=== PATIENT | female | born 1995 | race Caucasian/White ===

== ENCOUNTER 2017-11-04 16:10 | Emergency (ER) | payer OTHER ==
[~2017-11-04] VITALS: Ht 162.6 cm; Wt 51.3 kg
[2017-11-04] MEDS ORDERED: NS(*) 0.9% 1000 ML BAG 1,000 ML IV ONE ×2 (16:23→18:10)
[2017-11-04] MEDS ORDERED: ONDANSETRON 4 MG/2 ML VIAL IVP ONE (16:25)
--- NOTE | 2017-11-04 16:28 | ER Report ---
History and Physical Time Seen By MD: 16:15 Hx. of Stated Complaint: N/V/D SINCE 0700 HPI/ROS CHIEF COMPLAINT: Nausea, vomiting, diarrhea, abdominal pain HISTORY OF PRESENT ILLNESS: Patient is a 22-year-old female who presents to ED with complaint of nausea, vomiting, diarrhea, abdominal pain that started this morning at about 7 AM. She states that she initially had 2 or 3 episodes of diarrhea and then has had about 10-12 episodes of emesis today. She states that she has been feeling dehydrated and decided to go to urgent care. She states that she was told at urgent care that they were too busy to see her at this time. She decided to come to the emergency room for evaluation. She states that she has been having some intermittent abdominal pain but this resolves with vomiting. She has not noted any black or bloody bowel movements. She has not noted any blood in her emesis. She denies any fever. She is uncertain of any ill contacts at this time. She denies any cough or shortness of breath. She has not noted any chest pain. She states that she is currently on antibiotics for a urinary tract infection and possible uterine infection by her PAVING AND SURFACING LABOURER. She is uncertain of what the antibiotics are. She states that she was unable to take her antibiotics today due to her vomiting. She denies any back pain. She denies any dysuria or increased urinary frequency. REVIEW OF SYSTEMS: Constitutional: No fever, no chills. Eyes: No discharge. ENT: No sore throat. Cardiovascular: No chest pain, no palpitations. Respiratory: No cough, no shortness of breath. Gastrointestinal: See history of present illness. Genitourinary: See history of present illness. Musculoskeletal: No back pain. Skin: No rashes. Neurological: No headache. Allergies: Coded Allergies: codeine (Verified Allergy, Unknown, 11/04/17) Home Meds Reported Medications Ciprofloxacin Hcl (CIPROFLOXACIN HCL) 500 Mg Tablet, 500 MG PO Q12H, #14 TAB 11/04/17 Doxycycline Hyclate (DOXYCYCLINE HYCLATE) 100 Mg Tablet.dr, 100 MG PO BID 11/04/17 Reviewed Nurses Notes: Yes Old Medical Records Reviewed: Yes Constitutional Vital Sign - Last 24 Hours 11/04/17 11/04/17 11/04/17 11/04/17 16:15 16:15 16:30 16:40 Temp 97.9 Pulse 84 87 Resp 16 B/P (MAP) 128/77 128/77 (94) 114/83 (93) Pulse Ox 96 96 O2 Delivery Room Air 11/04/17 11/04/17 11/04/17 11/04/17 17:00 17:10 17:30 17:40 Pulse 92 85 B/P (MAP) 107/64 (78) 119/79 (92) Pulse Ox 100 96 11/04/17 18:00 B/P (MAP) 109/74 (86) Intake and Output 11/04/17 11/04/17 11/05/17 15:00 23:00 07:00 Intake Total 2000 ml Balance 2000 ml Physical Exam General Appearance: The patient is alert, has no immediate need for airway protection and no signs of toxicity. She appears to be no acute distress. Eyes: Pupils equal and round no pallor or injection. ENT, Mouth: Mucous membranes are moist. Respiratory: There are no retractions, lungs are clear to auscultation. Cardiovascular: Regular rate and rhythm. Gastrointestinal: There is mild epigastric and suprapubic tenderness with palpation. Normal bowel sounds in all 4 quadrants. No rebound or guarding is present. No CVA tenderness bilaterally. Skin: Warm and dry, no rashes. Musculoskeletal: Neck is supple non tender. Extremities are nontender, nonswollen and have full range of motion. DIFFERENTIAL DIAGNOSIS: After history and physical exam differential diagnosis was considered for abdominal pain including but not limited to appendicitis, cholecystitis, gastritis and urinary tract infection. Medical Decision Making Data Points Result Diagram: 11/04/17 1623 11/04/17 1623 Laboratory Hematology Test 11/04/17 16:12 11/04/17 16:23 11/04/17 17:32 Urine Color Yellow Urine Clarity Slightly-cloudy Urine pH 6.0 pH (4.8-9.5) Urine Specific [place] 1.009 Urine Protein Negative mg/dL (NEGATIVE) Urine Glucose (UA) Negative mg/dL (NEGATIVE) Urine Ketones Negative mg/dL (NEGATIVE) Urine Blood Small (NEGATIVE) Urine Nitrite Negative (NEGATIVE) Urine Bilirubin Negative (NEGATIVE) Urine Urobilinogen Negative mg/dL (0.2-1.9) Urine Leukocyte Esterase Moderate (NEGATIVE) Urine RBC 4 /HPF (0-2/HPF) Urine WBC 2 /HPF (0-5/HPF) Urine Squamous Epithelial Cells Many /LPF (</=FEW) Urine Bacteria Negative /HPF (NONE-FEW) Urine Mucus None /HPF (NONE-FEW) Urine HCG, Qualitative Negative (NEGATIVE) Red Blood Count 5.25 M/uL (4.17-5.56) Mean Corpuscular Volume 86.6 fL (80.0-96.0) Mean Corpuscular Hemoglobin 29.3 pg (26.0-33.0) Mean Corpuscular Hemoglobin Concent 33.9 g/dL (32.0-36.0) Red Cell Distribution Width 12.5 % (11.5-14.5) Mean Platelet Volume 7.7 fL (7.2-11.1) Neutrophils (%) (Auto) 91.5 % (39.4-72.5) Lymphocytes (%) (Auto) 3.8 % (17.6-49.6) Monocytes (%) (Auto) 3.7 % (4.1-12.4) Eosinophils (%) (Auto) 0.0 % (0.4-6.7) Basophils (%) (Auto) 1.0 % (0.3-1.4) Nucleated RBC Relative Count (auto) 0.1 /100WBC Neutrophils # (Auto) 13.3 K/uL (2.0-7.4) Lymphocytes # (Auto) 0.6 K/uL (1.3-3.6) Monocytes # (Auto) 0.5 K/uL (0.3-1.0) Eosinophils # (Auto) 0.0 K/uL (0.0-0.5) Basophils # (Auto) 0.1 K/uL (0.0-0.1) Nucleated RBC Absolute Count (auto) 0.01 K/uL Peripheral Blood Smear Yes Y/N Sodium Level 139 mmol/L (137-145) Potassium Level 4.5 mmol/L (3.5-5.0) Chloride Level 103 mmol/L (98-107) Carbon Dioxide Level 22 mmol/L (22-31) Blood Urea Nitrogen 25 mg/dl (7-18) Creatinine 1.90 mg/dl (0.52-1.04) Glomerular Filtration Rate Calc 33.4 Random Glucose 114 mg/dl (75-110) Calcium Level 9.8 mg/dl (8.4-10.2) Total Bilirubin 0.7 mg/dl (0.2-1.3) Aspartate Amino Transf (AST/SGOT) 39 U/L (0-35) Alanine Aminotransferase (ALT/SGPT) 33 U/L (0-56) Alkaline Phosphatase 94 U/L (0-126) Total Protein 7.6 gm/dl (6.3-8.2) Albumin 4.6 g/dl (3.5-5.0) Lipase 83 U/L (23-300) Chemistry Test 11/04/17 16:12 11/04/17 16:23 11/04/17 17:32 Urine Color Yellow Urine Clarity Slightly-cloudy Urine pH 6.0 pH (4.8-9.5) Urine Specific [place] 1.009 Urine Protein Negative mg/dL (NEGATIVE) Urine Glucose (UA) Negative mg/dL (NEGATIVE) Urine Ketones Negative mg/dL (NEGATIVE) Urine Blood Small (NEGATIVE) Urine Nitrite Negative (NEGATIVE) Urine Bilirubin Negative (NEGATIVE) Urine Urobilinogen Negative mg/dL (0.2-1.9) Urine Leukocyte Esterase Moderate (NEGATIVE) Urine RBC 4 /HPF (0-2/HPF) Urine WBC 2 /HPF (0-5/HPF) Urine Squamous Epithelial Cells Many /LPF (</=FEW) Urine Bacteria Negative /HPF (NONE-FEW) Urine Mucus None /HPF (NONE-FEW) Urine HCG, Qualitative Negative (NEGATIVE) White Blood Count 14.5 k/uL (4.5-11.0) Red Blood Count 5.25 M/uL (4.17-5.56) Hemoglobin 15.4 g/dL (12.0-16.0) Hematocrit 45.4 % (34.0-47.0) Mean Corpuscular Volume 86.6 fL (80.0-96.0) Mean Corpuscular Hemoglobin 29.3 pg (26.0-33.0) Mean Corpuscular Hemoglobin Concent 33.9 g/dL (32.0-36.0) Red Cell Distribution Width 12.5 % (11.5-14.5) Platelet Count 359 K/uL (150-450) Mean Platelet Volume 7.7 fL (7.2-11.1) Neutrophils (%) (Auto) 91.5 % (39.4-72.5) Lymphocytes (%) (Auto) 3.8 % (17.6-49.6) Monocytes (%) (Auto) 3.7 % (4.1-12.4) Eosinophils (%) (Auto) 0.0 % (0.4-6.7) Basophils (%) (Auto) 1.0 % (0.3-1.4) Nucleated RBC Relative Count (auto) 0.1 /100WBC Neutrophils # (Auto) 13.3 K/uL (2.0-7.4) Lymphocytes # (Auto) 0.6 K/uL (1.3-3.6) Monocytes # (Auto) 0.5 K/uL (0.3-1.0) Eosinophils # (Auto) 0.0 K/uL (0.0-0.5) Basophils # (Auto) 0.1 K/uL (0.0-0.1) Nucleated RBC Absolute Count (auto) 0.01 K/uL Peripheral Blood Smear Yes Y/N Glomerular Filtration Rate Calc 33.4 Calcium Level 9.8 mg/dl (8.4-10.2) Total Bilirubin 0.7 mg/dl (0.2-1.3) Aspartate Amino Transf (AST/SGOT) 39 U/L (0-35) Alanine Aminotransferase (ALT/SGPT) 33 U/L (0-56) Alkaline Phosphatase 94 U/L (0-126) Total Protein 7.6 gm/dl (6.3-8.2) Albumin 4.6 g/dl (3.5-5.0) Lipase 83 U/L (23-300) Urinalysis Test 11/04/17 16:12 Urine Color Yellow Urine Clarity Slightly-cloudy Urine pH 6.0 pH (4.8-9.5) Urine Specific [place] 1.009 Urine Protein Negative mg/dL (NEGATIVE) Urine Glucose (UA) Negative mg/dL (NEGATIVE) Urine Ketones Negative mg/dL (NEGATIVE) Urine Blood Small (NEGATIVE) Urine Nitrite Negative (NEGATIVE) Urine Bilirubin Negative (NEGATIVE) Urine Urobilinogen Negative mg/dL (0.2-1.9) Urine Leukocyte Esterase Moderate (NEGATIVE) Urine RBC 4 /HPF (0-2/HPF) Urine WBC 2 /HPF (0-5/HPF) Urine Squamous Epithelial Cells Many /LPF (</=FEW) Urine Bacteria Negative /HPF (NONE-FEW) Urine Mucus None /HPF (NONE-FEW) Urine HCG, Qualitative Negative (NEGATIVE) Microbiology Microbiology Date/Time Source Procedure Growth Status 11/04/17 17:32 Vaginal Wet Prep - Final Complete ED Course/Re-evaluation Clinical Indication for ER IV: Hydration ED Course Patient will be given 1 L normal saline bolus with 4 mg IV Zofran. Will obtain labs from patient. 11/04/2017 6:41:27 pm - much improved. Discussed all labs with patient. She does have some leukocytosis at 14.5 thousand as well as elevated creatinine and BUN of 1.9 and 25 respectively. Did have the patient's friends got to her apartment and grab her antibiotics with her consent. She appears to have been on doxycycline and Cipro with a 2 week supply and still has 2 days left. She states that she was having a lot more pain at that point with her pelvic exam. She states she was having cramping which has resolved. Given her history we did complete a pelvic exam here. Pelvic exam: The vulva was normal no lesions. The vagina had small amount of white discharge The cervix was closed no bleeding and no purulent drainage. The uterus was normal size and non tender. The adnexa had no masses and no tenderness. The exam was performed with a sales activity manager. Discussed patient with Dr. Ambrosio, ED advised that discussed patient with Dr. Ramirez, hospitalist. Discussed patient with Dr. Ramirez, hospitalist who advised Dr. Mederos about possibly needing IUD removal given a possible PID previously. He advised the patient likely could be discharged home after fluid resuscitation here. Discussed patient with Dr. Mederos, gynecology, who discussed that given her normal pelvic exam she likely does not have any remnant of PID and unlikely would need IUD removal at this time. He advised to have patient finish her current antibiotics now. With patient's consent, discussed patient's condition with her mother, Dr. Torres, who is a general surgeon in [place], [place]. Discussed all of her labs and conversations with the other physicians about her daughter. Discussed that most likely pitchers that she is having some gastroenteritis and will send her home with Zofran as long as she is able to tolerate fluids well she should be able to rehydrate herself. Would like her to have close follow-up for gynecology and primary care provider and have her creatinine rechecked. She should finish her antibiotics that she currently has. Decision to Disposition Date: Nov 04, 2017 Decision to Disposition Time: 18:46 Depart Departure Latest Vital Signs Vital Signs Date Time Temp Pulse Resp B/P (MAP) Pulse Ox O2 Delivery O2 Flow Rate FiO2 11/04/17 18:00 109/74 (86) 11/04/17 17:40 85 96 11/04/17 16:15 97.9 16 Room Air Impression: Primary Impression: Nausea vomiting and diarrhea Additional Impressions: Abdominal pain Acute kidney injury Bacterial vaginosis Condition: Improved Disposition: HOME OR SELF-CARE Referrals: ELIGIO MEDEROS MD, MARIE C DO New Scripts Metronidazole (METRONIDAZOLE) 500 Mg Tablet 500 MG PO BID for 7 Days, #14 TAB Prov: QUINN TAVARES PA-C 11/04/17 Ondansetron (ZOFRAN ODT) 4 Mg Tab.rapdis 4 MG PO Q6H Y for NAUSEA/VOMITING, #12 TAB.ASHER Prov: QUINN TAVARES PA-C 11/04/17 Patient Instructions: Abdominal Pain (ED), Acute Diarrhea (ED), Acute Kidney Injury (GEN), Acute Nausea and Vomiting (ED), Bacterial Vaginosis (ED) Additional Instructions: Stay well-hydrated. Take Zofran as needed for the nausea. If unable to stay well -hydrated return immediately to the emergency room. Finish your current antibiotics of doxycycline and ciprofloxacin. Start metronidazole as well. Follow-up with primary care provider or supplies packer just in 1-2 days or in you have a referral for this. If having any worsening or concerning symptoms. Return to the emergency department. WIRELESS SALES CONSULTANT/PA consult with MD: Verbally MD Consult Note: Dr. Ambrosio, ED Dr. Mederos, Gynecology Dr. Ramirez, Hospitalist Problem Qualifiers Additional Impressions: Abdominal pain Abdominal location: unspecified location Qualified Codes: R10.9 - Unspecified abdominal pain QUINN TAVARES PA-C Nov 04, 2017 16:28
[2017-11-04 16:31] LABS: PLATELET COUNT, AUTOMATED 359 K/uL (150-450)
[2017-11-04] MEDS ORDERED: CIPR-214 PO (17:17)
[2017-11-04] MEDS ORDERED: DOXY-228 PO (17:17)
[2017-11-04] MEDS ORDERED: ONDA4TAB PO (19:22)
[2017-11-04] MEDS ORDERED: METR-160 PO (19:22)
[2017-11-04] MEDS ORDERED: metroNIDAZOLE 250 MG TAB TH 2 TAB/BOTTLE PO ONE (19:25)
[2017-11-04] MEDS ORDERED: ONDANSETRON 4 MG ODT TH SL ONE (19:25)
[2017-11-04 19:31] VITALS: BP 105/72
== END 2017-11-04 19:40 | disposition home or self-care (01) ==
LOC: ER 16:33
DX: N17.9 Acute kidney failure, unspecified (principal); N76.0 Acute vaginitis
CPT/HCPCS: 81001; 81025; 83690; 85025; 87210; 87491; 87591; 96361; 96374; 99283; J2405; J7030; 82040; 82247; 82310; 82374; 82435; 82565; 82947; 84075; 84132; 84155; 84295; 84450; 84460; 84520

== ENCOUNTER 2017-11-07 12:07 | Emergency (ER) | payer OTHER ==
[~2017-11-07] VITALS: Ht 162.6 cm; Wt 51.3 kg
[~2017-11-07 12:07] MED LIST: CIPR-214 PO; DOXY-228 PO; METR-160 PO; ONDA4TAB PO
[2017-11-07] MEDS ORDERED: NS(*) 0.9% 1000 ML BAG 1,000 ML IV ONE ×2 (12:18→13:30)
[2017-11-07] MEDS ORDERED: ONDANSETRON 4 MG/2 ML VIAL IVP ONE (12:20)
[2017-11-07 12:38] LABS: PLATELET COUNT, AUTOMATED 376 K/uL (150-450)
--- NOTE | 2017-11-07 12:45 | ER Report ---
History and Physical Time Seen By MD: 12:38 Hx. of Stated Complaint: PT RETURN VISIT TO CHECK KIDNEY FUNCTION AND HAS BEEN VOMITING. (OMER MURRAY MD) HPI/ROS CHIEF COMPLAINT: Continued vomiting HISTORY OF PRESENT ILLNESS: Patient is a 22-year-old female with no contributory past medical history who presents to the emergency department for reevaluation for persistent vomiting. Patient was seen on November 04 for complaint of nausea vomiting and diarrhea. During that workup she was found to have a slightly elevated creatinine 1.9 which is felt to be related to acute kidney injury due to dehydration. Patient had recently being treated by BODY ART TECHNICIAN for pelvic infection with ciprofloxacin and doxycycline. Patient received IV hydration there was discussion about potential admission however was felt the patient would be stable for discharge home after rehydration. She was sent home with oral Zofran which she has been taking. Patient notes that she is still had vomiting over the past 24-48 hours. She has episodic crampy abdominal pain but currently no discomfort at this time. She denies any vaginal discharge. Reviewing the medical history patient did have a complete pelvic exam was performed in the emergency department and cultures obtained. There are no concerning findings noted by the provider on that exam. Patient is denying any pelvic pain or symptoms at this time. She does report feeling cold and chilled but does not actually have a fever that she recalls. Patient denies dysuria or burning with urination. She does note the urine is somewhat darker colored. Patient denies any true flulike symptoms including headaches are sore throat but she does report some body aches. REVIEW OF SYSTEMS: Constitutional: Chills Eyes: No discharge. ENT: No sore throat. Cardiovascular: No chest pain, no palpitations. Respiratory: No cough, no shortness of breath. Gastrointestinal: Episodic crampy abdominal pain nausea with vomiting Genitourinary: No hematuria. Musculoskeletal: No back pain. Skin: No rashes. Neurological: No headache. (OMER MURRAY MD) Allergies: Coded Allergies: codeine (Verified Allergy, Unknown, 11/07/17) Home Meds Active Scripts Metronidazole (METRONIDAZOLE) 500 Mg Tablet, 500 MG PO BID for 7 Days, #14 TAB Prov:QUINN TAVARES-C 11/04/17 Ondansetron (ZOFRAN ODT) 4 Mg Tab.rapdis, 4 MG PO Q6H Y for NAUSEA/VOMITING, # 12 TAB.ASHER Prov:QUINN TAVARES ROMAINE 11/04/17 Reported Medications Ciprofloxacin Hcl (CIPROFLOXACIN HCL) 500 Mg Tablet, 500 MG PO Q12H, #14 TAB 11/04/17 Doxycycline Hyclate (DOXYCYCLINE HYCLATE) 100 Mg Tablet.dr, 100 MG PO BID 11/04/17 Past Medical/Surgical History History of IUD (OMER MURRAY MD) Hx Substance Use Disorder: No Hx Alcohol Use: No (OMER MURRAY MD) Constitutional Vital Sign - Last 24 Hours 11/07/17 11/07/17 11/07/17 11/07/17 12:12 12:13 12:22 12:30 Temp 98.0 Pulse 73 78 Resp 14 B/P (MAP) 110/44 (66) 110/44 120/78 (92) Pulse Ox 95 95 O2 Delivery Room Air 11/07/17 11/07/17 11/07/17 11/07/17 12:37 12:52 13:00 13:07 Pulse 72 74 77 B/P (MAP) 112/78 (89) Pulse Ox 95 97 96 11/07/17 11/07/17 11/07/17 11/07/17 13:12 13:27 13:42 13:57 Pulse 84 72 77 Pulse Ox 96 93 97 100 11/07/17 11/07/17 11/07/17 14:00 14:12 14:28 Temp 97.7 Pulse 83 B/P (MAP) 105/70 (82) Pulse Ox 99 Intake and Output 11/07/17 11/07/17 11/08/17 15:00 23:00 07:00 Intake Total 2000 ml Balance 2000 ml (LAURORA,BLAKE V DO) Physical Exam General/Constitutional: Patient is awake, alert, nontoxic and in no acute respiratory distress. Head: Normocephalic and atraumatic. Eyes: Conjunctival clear, Pupils are equal and reactive to light. Extraocular muscles are intact and symmetrical. Sclera are clear and anicteric. Ears:External canals are clear. Tympanic membranes are clear with normal landmarks and light reflex. Nares: No rhinorrhea or bleeding. Turbinates are pink and moist. Oropharyngeal: Mucous membranes are somewhat dry. There is no pharyngeal erythema or exudate. There are no palatal petechiae. Uvula is midline and symmetrical. Neck: Supple, no adenopathy. Cardiovascular: Heart is regular rate and rhythm without audible murmurs, rubs or gallops. Pulmonary: Lungs are clear to auscultation bilaterally. There are no wheezes, rales, or rhonchi. Chest rise is symmetrical Abdomen: Soft, nontender, no guarding or peritoneal signs. Extremities: No gross deformities, No peripheral cyanosis. Able to move all 4 extremities. Neuro: Alert and oriented X3, Skin: No rashes, skin is warm dry and well perfused. (OMER MURRAY MD) Medical Decision Making Data Points Result Diagram: 11/07/17 1219 11/07/17 1425 Laboratory Hematology Test 11/07/17 12:10 11/07/17 12:19 11/07/17 12:30 11/07/17 14:25 Urine Color Straw Urine Clarity Clear Urine pH 6.0 pH (4.8-9.5) Urine Specific [place] 1.002 Urine Protein Negative mg/dL (NEGATIVE) Urine Glucose (UA) Negative mg/dL (NEGATIVE) Urine Ketones Trace mg/dL (NEGATIVE) Urine Blood Negative (NEGATIVE) Urine Nitrite Negative (NEGATIVE) Urine Bilirubin Negative (NEGATIVE) Urine Urobilinogen Negative mg/dL (0.2-1.9) Urine Leukocyte Esterase Trace (NEGATIVE) Urine RBC None /HPF (0-2/HPF) Urine WBC 1 /HPF (0-5/HPF) Urine Squamous Epithelial Cells Many /LPF (</=FEW) Urine Bacteria Negative /HPF (NONE-FEW) Urine Mucus None /HPF (NONE-FEW) Red Blood Count 5.41 M/uL (4.17-5.56) Mean Corpuscular Volume 87.0 fL (80.0-96.0) Mean Corpuscular Hemoglobin 30.1 pg (26.0-33.0) Mean Corpuscular Hemoglobin Concent 34.6 g/dL (32.0-36.0) Red Cell Distribution Width 12.4 % (11.5-14.5) Mean Platelet Volume 7.7 fL (7.2-11.1) Neutrophils (%) (Auto) 74.9 % (39.4-72.5) Lymphocytes (%) (Auto) 11.5 % (17.6-49.6) Monocytes (%) (Auto) 10.8 % (4.1-12.4) Eosinophils (%) (Auto) 2.0 % (0.4-6.7) Basophils (%) (Auto) 0.8 % (0.3-1.4) Nucleated RBC Relative Count (auto) 0.4 /100WBC Neutrophils # (Auto) 4.3 K/uL (2.0-7.4) Lymphocytes # (Auto) 0.7 K/uL (1.3-3.6) Monocytes # (Auto) 0.6 K/uL (0.3-1.0) Eosinophils # (Auto) 0.1 K/uL (0.0-0.5) Basophils # (Auto) 0.0 K/uL (0.0-0.1) Nucleated RBC Absolute Count (auto) 0.02 K/uL Total Bilirubin 0.9 mg/dl (0.2-1.3) Aspartate Amino Transf (AST/SGOT) 37 U/L (0-35) Alanine Aminotransferase (ALT/SGPT) 30 U/L (0-56) Alkaline Phosphatase 97 U/L (0-126) Total Protein 8.9 gm/dl (6.3-8.2) Albumin 5.2 g/dl (3.5-5.0) Lipase 64 U/L (23-300) Human Chorionic Gonadotropin, Qual Negative (NEGATIVE) Influenza Virus Type A (PCR) Negative (NEGATIVE) Influenza Virus Type B (PCR) Negative (NEGATIVE) Sodium Level 139 mmol/L (137-145) Potassium Level 3.9 mmol/L (3.5-5.0) Chloride Level 103 mmol/L (98-107) Carbon Dioxide Level 22 mmol/L (22-31) Blood Urea Nitrogen 14 mg/dl (7-18) Creatinine 1.20 mg/dl (0.52-1.04) Glomerular Filtration Rate Calc 56.7 Random Glucose 70 mg/dl (75-110) Calcium Level 8.8 mg/dl (8.4-10.2) Chemistry Test 11/07/17 12:10 11/07/17 12:19 11/07/17 12:30 11/07/17 14:25 Urine Color Straw Urine Clarity Clear Urine pH 6.0 pH (4.8-9.5) Urine Specific [place] 1.002 Urine Protein Negative mg/dL (NEGATIVE) Urine Glucose (UA) Negative mg/dL (NEGATIVE) Urine Ketones Trace mg/dL (NEGATIVE) Urine Blood Negative (NEGATIVE) Urine Nitrite Negative (NEGATIVE) Urine Bilirubin Negative (NEGATIVE) Urine Urobilinogen Negative mg/dL (0.2-1.9) Urine Leukocyte Esterase Trace (NEGATIVE) Urine RBC None /HPF (0-2/HPF) Urine WBC 1 /HPF (0-5/HPF) Urine Squamous Epithelial Cells Many /LPF (</=FEW) Urine Bacteria Negative /HPF (NONE-FEW) Urine Mucus None /HPF (NONE-FEW) White Blood Count 5.7 k/uL (4.5-11.0) Red Blood Count 5.41 M/uL (4.17-5.56) Hemoglobin 16.3 g/dL (12.0-16.0) Hematocrit 47.1 % (34.0-47.0) Mean Corpuscular Volume 87.0 fL (80.0-96.0) Mean Corpuscular Hemoglobin 30.1 pg (26.0-33.0) Mean Corpuscular Hemoglobin Concent 34.6 g/dL (32.0-36.0) Red Cell Distribution Width 12.4 % (11.5-14.5) Platelet Count 376 K/uL (150-450) Mean Platelet Volume 7.7 fL (7.2-11.1) Neutrophils (%) (Auto) 74.9 % (39.4-72.5) Lymphocytes (%) (Auto) 11.5 % (17.6-49.6) Monocytes (%) (Auto) 10.8 % (4.1-12.4) Eosinophils (%) (Auto) 2.0 % (0.4-6.7) Basophils (%) (Auto) 0.8 % (0.3-1.4) Nucleated RBC Relative Count (auto) 0.4 /100WBC Neutrophils # (Auto) 4.3 K/uL (2.0-7.4) Lymphocytes # (Auto) 0.7 K/uL (1.3-3.6) Monocytes # (Auto) 0.6 K/uL (0.3-1.0) Eosinophils # (Auto) 0.1 K/uL (0.0-0.5) Basophils # (Auto) 0.0 K/uL (0.0-0.1) Nucleated RBC Absolute Count (auto) 0.02 K/uL Total Bilirubin 0.9 mg/dl (0.2-1.3) Aspartate Amino Transf (AST/SGOT) 37 U/L (0-35) Alanine Aminotransferase (ALT/SGPT) 30 U/L (0-56) Alkaline Phosphatase 97 U/L (0-126) Total Protein 8.9 gm/dl (6.3-8.2) Albumin 5.2 g/dl (3.5-5.0) Lipase 64 U/L (23-300) Human Chorionic Gonadotropin, Qual Negative (NEGATIVE) Influenza Virus Type A (PCR) Negative (NEGATIVE) Influenza Virus Type B (PCR) Negative (NEGATIVE) Glomerular Filtration Rate Calc 56.7 Calcium Level 8.8 mg/dl (8.4-10.2) Urinalysis Test 11/07/17 12:10 Urine Color Straw Urine Clarity Clear Urine pH 6.0 pH (4.8-9.5) Urine Specific [place] 1.002 Urine Protein Negative mg/dL (NEGATIVE) Urine Glucose (UA) Negative mg/dL (NEGATIVE) Urine Ketones Trace mg/dL (NEGATIVE) Urine Blood Negative (NEGATIVE) Urine Nitrite Negative (NEGATIVE) Urine Bilirubin Negative (NEGATIVE) Urine Urobilinogen Negative mg/dL (0.2-1.9) Urine Leukocyte Esterase Trace (NEGATIVE) Urine RBC None /HPF (0-2/HPF) Urine WBC 1 /HPF (0-5/HPF) Urine Squamous Epithelial Cells Many /LPF (</=FEW) Urine Bacteria Negative /HPF (NONE-FEW) Urine Mucus None /HPF (NONE-FEW) (BLAKE ALDRICH DO) ED Course/Re-evaluation ED Course 11/07/2017 12:42:50 pm Patient is an otherwise healthy 22-year-old female who returns for persistent vomiting. Plan at this time will be to place an IV we will give IV hydration we' ll recheck a comprehensive metabolic panel, CBC, urinalysis and influenza screen patient denies any abdominal pain at this time will give Zofran but will hold on pain medicine at this time Re-evaluation 11/07/2017 1:45:39 pm patient feeling improved currently about mcc through her 2nd liter of IV fluid. No further episodes of vomiting or abdominal pain. We 'll repeat a basic metabolic panel after the 2nd liter is infused. I anticipate patient will be able to discharge home for continued Zofran and encouraged fluid hydration. (OMER MURRAY MD) ED Course 11/07/2017 2:52:22 pm Repeat bmp shows improvement of her creatine. Pt is happy to be going home "thats awesome". Pt states she has zofran at home and does not require a new script. Decision to Disposition Date: Nov 07, 2017 Decision to Disposition Time: 14:53 (BLAKE ALDRICH DO) Depart Departure Latest Vital Signs Vital Signs Date Time Temp Pulse Resp B/P (MAP) Pulse Ox O2 Delivery O2 Flow Rate FiO2 11/07/17 14:28 97.7 11/07/17 14:12 83 99 11/07/17 14:00 105/70 (82) 11/07/17 12:13 14 Room Air (BLAKE ALDRICH DO) Impression: Primary Impression: Vomiting Additional Impression: Dehydration Condition: Improved Patient Instructions: Acute Nausea and Vomiting (ED) Additional Instructions: zofran one every 6 hours as needed for nausea and vomiting. Stay hydrated. Return for any concerns. Problem Qualifiers Primary Impression: Vomiting Vomiting type: unspecified Vomiting Intractability: unspecified Nausea presence: with nausea Qualified Codes: R11.2 - Nausea with vomiting, unspecified OMER MURRAY MD Nov 07, 2017 12:44 BLAKE ALDRICH DO Nov 07, 2017 14:55
[2017-11-07 14:00] VITALS: BP 105/70
== END 2017-11-07 15:00 | disposition home or self-care (01) ==
LOC: ER 12:11
DX: E86.0 Dehydration (principal); R11.2 Nausea with vomiting, unspecified
CPT/HCPCS: 36415; 81001; 83690; 84703; 85025; 87088; 87491; 87502; 87591; 96361; 96374; 99283; J2405; J7030; 82040; 82247; 82310; 82374; 82435; 82565; 82947; 84075; 84132; 84155; 84295; 84450; 84460; 84520; 87077; 87186

== ENCOUNTER → 2017-11-20 | Outpatient (REF) | payer OTHER | LOC: ZZSENDIN 12:47 | PROVIDERS: ATTEND Obstetrics & Gynecology | DX: R19.7 Diarrhea, unspecified (principal) | CPT/HCPCS: 87045; 87177; 87205; 87269; 87324; 87449 ==